=== PATIENT | female | born 1965 | race Caucasian/White ===

== ENCOUNTER 2022-05-17 07:13 | Day surgery (SDC) | payer OTHER ==
[2022-05-17] MEDS ORDERED: Lactated Ringers 1,000 ML IV SCH (08:00)
[2022-05-17] MEDS ORDERED: Midazolam 1 MG/ML 2 ML SDV ONE (08:04)
[2022-05-17] MEDS ORDERED: Propofol 200 MG/20 ML SDV ONE (08:04)
[2022-05-17] MEDS ORDERED: fentaNYL 100 MCG/2 ML SDV ONE (08:04)
== END 2022-05-17 10:37 | disposition home or self-care (01) ==
LOC: JP.SDS 07:13
PROVIDERS: ATTEND Family Medicine
DX: K51.40 Inflammatory polyps of colon without complications (principal); Z87.891 Personal history of nicotine dependence
CPT/HCPCS: 45385; J2250; J2704; J3010; J7120